=== PATIENT | male | born 1950 | race Caucasian/White ===

== ENCOUNTER 2021-03-06 08:38 | Day surgery (SDC) | payer MEDICARE, BC ==
[~2021-03-06] VITALS: Ht 182.9 cm; Wt 73.6 kg
[2021-03-06] MEDS ORDERED: fentaNYL/PF 50MCG/1 ML 2ML syringe ONE (08:49)
[2021-03-06] MEDS ORDERED: LIDOcaine Viscous 15ml cup ONE (08:49)
[2021-03-06] MEDS ORDERED: MIDAZolam 1 MG/ML 5ML VIAL ONE (08:49)
[2021-03-06 09:01] VITALS: BP 130/96
[2021-03-06] MEDS ORDERED: DEXT20CA4 PO (09:18)
[2021-03-06] MEDS ORDERED: DEXT10CA19 PO (09:20)
[2021-03-06] MEDS ORDERED: BUPR150T8 PO (09:21)
[2021-03-06] MEDS ORDERED: DONE5TAB7 PO (09:22)
[2021-03-06] MEDS ORDERED: ANAS1TAB10 PO (09:22)
[2021-03-06] MEDS ORDERED: OMEP40CA21 PO (09:23)
[2021-03-06] MEDS ORDERED: ARIP5TAB14 PO (09:24)
[2021-03-06] MEDS ORDERED: QUET-1 PO (09:25)
[2021-03-06] MEDS ORDERED: MIRT-116 PO (09:25)
[2021-03-06] MEDS ORDERED: HYDR-3965 PO (09:26)
[2021-03-06 10:18] VITALS: BP 112/76
[2021-03-06 10:28] VITALS: BP 111/80
[2021-03-06 10:38] VITALS: BP 113/82
[2021-03-06 10:48] VITALS: BP 112/80
[2021-03-06 10:58] VITALS: BP 114/78
== END 2021-03-06 11:00 | disposition home or self-care (01) ==
LOC: GI LAB 08:38
PROVIDERS: ATTEND Internal Medicine Gastroenterology
DX: Z12.11 Encounter for screening for malignant neoplasm of colon (principal); R13.10 Dysphagia, unspecified; D12.5 Benign neoplasm of sigmoid colon; D12.8 Benign neoplasm of rectum; K57.30 Diverticulosis of large intestine without perforation or abscess without bleeding; K62.89 Other specified diseases of anus and rectum; K22.2 Esophageal obstruction; K44.9 Diaphragmatic hernia without obstruction or gangrene; K31.89 Other diseases of stomach and duodenum; K29.50 Unspecified chronic gastritis without bleeding; Z72.89 Other problems related to lifestyle
CPT/HCPCS: 43239; 43450; 45385; 99153; C1773; G0500; J2250; J3010; J7040; 43233; 88305; 99152; A4620

== ENCOUNTER 2023-08-12 11:18 | Day surgery (SDC) | payer MEDICARE, BC ==
[2023-08-12] VITALS (8 sets, daily range): BP systolic 109–126; BP diastolic 63–73; PULSE 67–75; RESP 11–16; TEMP 98.2; O2SAT 95–100
[~2023-08-12] VITALS: Ht 182.9 cm; Wt 68.5 kg
[~2023-08-12 11:18] MED LIST: ESCI-8 PO; FLO0.1T PO; PANT40TA54 PO; TRAZ-251 PO; cefazolin 2gm/D5W 100mL 100 ML IV ONE; famotidine 20mg tablet PO ONE; ringers solution, lacted 1,000 ML IV SCH
[2023-08-12 14:46] LABS: BASOPHILS % (AUTO) 0.7 % (0-1); EOSINOPHILS # (AUTO) 0.1 X10'3 (0-0.9); EOSINOPHILS % (AUTO) 1.4 % (0-6); LYMPHOCYTES % (AUTO) 18.3 % (21-51); MEAN CORPUSCULAR HGB CONC 33.9 g/dL (33.0-36.5); MEAN CORPUSCULAR VOLUME 94.4 FL (78-98); MEAN PLATELET VOLUME 6.7 FL (7.4-10.4); MONOCYTES # (AUTO) 0.5 X10'3 (0-0.9); MONOCYTES % (AUTO) 9.7 % (2-12); NEUTROPHILS # (AUTO) 3.7 X10'3 (1.8-7.7); NEUTROPHILS % (AUTO) 69.9 % (42-75); PRE OP HEMATOCRIT 41.2 % (42.0-52.0); PRE OP PLATELET COUNT 237 X10'3 (140-440); PRE OP WHITE BLOOD COUNT 5.2 10'3 (4.8-10.8); RED BLOOD COUNT 4.36 X10'6 (4.70-6.10); RED CELL DISTRIBUTION WIDTH 13.5 % (11.5-14.5)
[2023-08-12 14:59] LABS: ALBUMIN 3.3 G/DL (3.4-5.0); ALBUMIN/GLOBULIN RATIO 1.2 (1.1-1.5); BLOOD UREA NITROGEN 6 MG/DL (7-18); BUN/CREATININE RATIO 6.7 (10.0-20.0); CALCIUM 8.8 MG/DL (8.5-10.1); CHLORIDE 102 MMOL/L (99-107); CREATININE 0.89 MG/DL (0.60-1.10); PRE OP ANION GAP 11 (8-16); PRE OP BILIRUB, TOTAL 0.4 MG/DL (0.0-1.0); PRE OP GLUCOSE 90 MG/DL (70-104); PRE OP POTASSIUM 3.7 MMOL/L (3.4-5.1); PRE OP SODIUM 138 MMOL/L (135-145); TOTAL CARBON DIOXIDE 24.8 MMOL/L (24-32); eCRCL 74 ML/MIN; eGFR 84 ML/MIN
[2023-08-12 15:57] LABS: ALKALINE PHOSPHATASE 52 IU/L (46-116); PRE OP ALT 19 U/L (30-65); PRE OP AST 15 U/L (10-37)
[2023-08-12] MEDS ORDERED: LIDOcaine 1% 30ml preserv. free vial IJ ONE (16:00)
[2023-08-12] MEDS ORDERED: BUPIVAcaine/PF 5 MG/ML 10ML VIAL IJ ONE (16:00)
[2023-08-12] MEDS ORDERED: LIDOcaine 1% (10mg/ml)w/preservative inj. 20ml MDV ONE (16:03)
[2023-08-12] MEDS ORDERED: BUPIVAcaine/PF 5 mg/ml 10ml ONE (16:03)
[2023-08-12] MEDS ORDERED: fentaNYL/PF 50MCG/1 ML 2ML syringe ONE (16:16)
[2023-08-12] MEDS ORDERED: MIDAZolam 1 MG/ML 5ML VIAL ONE (16:17)
[2023-08-12] MEDS ORDERED: propofol inj 20 ML IV ONE (16:22)
== END 2023-08-12 17:42 | disposition home or self-care (01) ==
LOC: PAS 11:18
PROVIDERS: ATTEND Surgery
DX: L72.3 Sebaceous cyst (principal); L08.89 Other specified local infections of the skin and subcutaneous tissue; I10 Essential (primary) hypertension; E03.9 Hypothyroidism, unspecified; G30.9 Alzheimer's disease, unspecified; F02.80 Dementia in other diseases classified elsewhere, unspecified severity, without behavioral disturbance, psychotic disturbance, mood disturbance, and anxiety; M19.90 Unspecified osteoarthritis, unspecified site; M10.9 Gout, unspecified; Z98.890 Other specified postprocedural states; Z79.899 Other long term (current) drug therapy; Z82.49 Family history of ischemic heart disease and other diseases of the circulatory system; Z83.3 Family history of diabetes mellitus
CPT/HCPCS: 11404; 36415; 80053; 85025; 93005; J0690; J2250; J2704; J3010; J3490; J7030; J7120; Z7506; Z7512; A4618; A6407; A6449; A7000

== ENCOUNTER 2023-09-02 11:18 | Day surgery (SDC) | payer MEDICARE, BC ==
[~2023-09-02] VITALS: Ht 182.9 cm; Wt 69.0 kg
[2023-09-02] VITALS (9 sets, daily range): BP systolic 123–143; BP diastolic 64–94; PULSE 59–67; RESP 9–20; TEMP 98.3; O2SAT 96–100
[~2023-09-02 11:18] MED LIST changes: -cefazolin 2gm/D5W 100mL 100 ML IV ONE; -famotidine 20mg tablet PO ONE; -ringers solution, lacted 1,000 ML IV SCH
[2023-09-02] MEDS ORDERED: cefazolin 2gm/D5W 100mL 100 ML IV ONE (12:00)
[2023-09-02 12:30] LABS: BASOPHILS % (AUTO) 0.7 % (0-1); EOSINOPHILS % (AUTO) 0.8 % (0-6); LYMPHOCYTES # (AUTO) 0.8 X10'3 (1.1-4.8); LYMPHOCYTES % (AUTO) 14.3 % (21-51); MEAN CORPUSCULAR HEMOGLOBIN 31.8 PG (27.0-31.0); MEAN CORPUSCULAR HGB CONC 33.6 g/dL (33.0-36.5); MEAN CORPUSCULAR VOLUME 94.5 FL (78-98); MEAN PLATELET VOLUME 6.4 FL (7.4-10.4); MONOCYTES # (AUTO) 0.4 X10'3 (0-0.9); NEUTROPHILS # (AUTO) 4.2 X10'3 (1.8-7.7); NEUTROPHILS % (AUTO) 76.2 % (42-75); PRE OP HEMATOCRIT 41.5 % (42.0-52.0); PRE OP HEMOGLOBIN 13.9 g/dL (14.0-17.9); PRE OP PLATELET COUNT 238 X10'3 (140-440); PRE OP WHITE BLOOD COUNT 5.5 10'3 (4.8-10.8); RED BLOOD COUNT 4.39 X10'6 (4.70-6.10); RED CELL DISTRIBUTION WIDTH 14.5 % (11.5-14.5)
[2023-09-02 12:45] LABS: ALBUMIN 3.4 G/DL (3.4-5.0); ALBUMIN/GLOBULIN RATIO 1.1 (1.1-1.5); ALKALINE PHOSPHATASE 60 IU/L (46-116); BLOOD UREA NITROGEN 10 MG/DL (7-18); BUN/CREATININE RATIO 9.3 (10.0-20.0); CHLORIDE 105 MMOL/L (99-107); CREATININE 1.07 MG/DL (0.60-1.10); PRE OP ALT 17 U/L (30-65); PRE OP ANION GAP 8 (8-16); PRE OP AST 18 U/L (10-37); PRE OP BILIRUB, TOTAL 0.7 MG/DL (0.0-1.0); PRE OP GLUCOSE 103 MG/DL (70-104); PRE OP POTASSIUM 3.9 MMOL/L (3.4-5.1); PRE OP SODIUM 142 MMOL/L (135-145); TOTAL CARBON DIOXIDE 29.3 MMOL/L (24-32); TOTAL PROTEIN 6.5 G/DL (6.4-8.2); eCRCL 62 ML/MIN; eGFR 68 ML/MIN
[2023-09-02] MEDS ORDERED: fentaNYL/PF 50MCG/1 ML 2ML syringe ONE ×2 (13:24→13:52)
[2023-09-02] MEDS ORDERED: propofol inj 20 ML IV ONE (13:52)
[2023-09-02] MEDS ORDERED: ondansetron/PF 4mg/2ml inj ONE (13:52)
[2023-09-02] MEDS ORDERED: dexamethasone sod phosphate 4mg/ml inj. ONE (13:52)
[2023-09-02] MEDS ORDERED: BUPIVAcaine 2.5mg/ml inj 50ml vial (contains preservative) SQ ONE (14:00)
[2023-09-02] MEDS ORDERED: HYDROcodone/acetaminophen 5mg/325mg tablet PO ONE (14:35)
[2023-09-02] MEDS ORDERED: meperidine/PF 25mg/ml syringe IV ONE (14:45)
[2023-09-02] MEDS ORDERED: cefazolin 2gm/D5W 100mL 100 ML IV SCH (16:00)
== END 2023-09-02 15:22 | disposition home or self-care (01) ==
LOC: PAS 11:18
PROVIDERS: ATTEND Surgery
DX: Z48.1 Encounter for planned postprocedural wound closure (principal); G30.9 Alzheimer's disease, unspecified; F02.80 Dementia in other diseases classified elsewhere, unspecified severity, without behavioral disturbance, psychotic disturbance, mood disturbance, and anxiety; I10 Essential (primary) hypertension; E03.9 Hypothyroidism, unspecified; M10.9 Gout, unspecified; K31.84 Gastroparesis; M19.90 Unspecified osteoarthritis, unspecified site; Z98.890 Other specified postprocedural states; Z79.899 Other long term (current) drug therapy; F10.91 Alcohol use, unspecified, in remission; Z82.49 Family history of ischemic heart disease and other diseases of the circulatory system
CPT/HCPCS: 13160; 36415; 80053; 85025; 93005; J1100; J2175; J2405; J2704; J3010; J3490; J7120; Z7512; A4618; A6449; A7000